=== PATIENT | female | born 1960 | race African-American/Black ===

== ENCOUNTER 2022-09-22 15:02 | Inpatient (IN) | payer OTHER, MEDICAID ==
[~2022-09-22] VITALS: Ht 160 cm; Wt 70.3 kg
[2022-09-22] MEDS ORDERED: CIPROFLOXACIN (15:15)
[2022-09-22] MEDS ORDERED: LANTUS (15:15)
[2022-09-22] MEDS ORDERED: VITAMIN D 3 (15:15)
[2022-09-22 15:27] LABS: BASOPHILS % 0.8 % (0.0-2.0); HEMATOCRIT. 50.6 % (36.0-48.0); HEMOGLOBIN. 16.5 g/dL (12.0-16.0); LYMPHOCYTES % 7.5 % (20.0-50.0); MEAN CORPUSCULAR VOLUME 79.7 fL (81.0-99.0); MEAN PLATELET VOLUME 11.1 fl (7.4-10.4); MONOCYTES % 5.9 % (2.0-8.0); NEUTROPHILS % 85.8 % (40.0-76.0); PLATELET 302 x1000/uL (130-400); RED BLOOD CELL COUNT 6.34 mill/uL (4.2-5.4); RED CELL DISTRIBUTION WIDTH 13.3 % (11.6-14.6)
[2022-09-22] MEDS ORDERED: SODIUM CHLORIDE 0.9% 1,000 ML IV ONE ×3 (15:30→16:45)
[2022-09-22 15:33] LABS: CHLORIDE 87 mEq/L (98-107)
[2022-09-22] MEDS ORDERED: DEXTROSE 50% WATER 25ML (12.5GM) IV PRN (16:45)
[2022-09-22] MEDS ORDERED: DEXTROSE 50% WATER 50ML (25GM) IV PRN (16:45)
[2022-09-22] MEDS ORDERED: KCL 10MEQ/50ML PREMIX 100 ML IV SCH (16:45)
[2022-09-22] MEDS ORDERED: POTASSIUM CHLORIDE 20MEQ TABLET SR PO ONE (16:45)
[2022-09-22] MEDS ORDERED: INSULIN REGULAR (DRIP) 100 UNITS in SODIUM CHLORIDE 0.9% 99 ML IV SCH (16:45)
[2022-09-22] MEDS ORDERED: INSULIN REGULAR 100U/100ML PMX 100 ML IV SCH (16:45)
[2022-09-22 16:53] LABS: PHOSPHORUS 5.4 mg/dL (2.5-4.9)
[2022-09-22] MEDS: BLOOD SUGAR DIAGNOSTIC STRIP TEST SCH ×8 (17:10→23:48)
[2022-09-22 17:15] LABS: BETA HYDROXYBUTYRATE 1.4 mMol/L (0.0-0.3)
[2022-09-22] MEDS ORDERED: SODIUM BICARBONATE 100 MEQ in DEXTROSE 5% WATER 1,000 ML IV ONE ×2 (17:30→19:30)
[2022-09-22 17:40] LABS: CLARITY URINE CLEAR (CLEAR); COLOR URINE YELLOW (YELLOW); KETONES URINE 3+ (NEGATIVE); LEUKOCYTE ESTERASE URINE NEGATIVE (NEGATIVE); NITRITE URINE NEGATIVE (NEGATIVE); OCCULT BLOOD URINE 1+ (NEGATIVE); PROTEIN URINE TRACE (NEGATIVE); SPECIFIC GRAVITY URINE 1.019 (1.005-1.030); UROBILINOGEN URINE 0.2 E.U./dL (0.2-1.0)
[2022-09-22] MEDS ORDERED: SODIUM CHLORIDE 0.9% 1,000 ML IV SCH (18:15)
[2022-09-22] MEDS ORDERED: DOCUSATE SODIUM 100MG CAPSULE PO PRN (18:15)
[2022-09-22] MEDS ORDERED: GUAIFENESIN 200MG/10ML SUGAR FREE UDC PO PRN (18:15)
[2022-09-22] MEDS ORDERED: ACETAMINOPHEN 325MG TABLET PO PRN ×2 (18:15)
[2022-09-22] MEDS ORDERED: DEXTROSE 50% WATER 50ML SYRINGE IV PRN (18:15)
[2022-09-22] MEDS ORDERED: CLONIDINE 0.1MG TABLET PO PRN (18:15)
[2022-09-22] MEDS ORDERED: IPRATROPIUM/ALBUTEROL 0.5-3(2.5)MG/3ML NEB HHN PRN (18:15)
[2022-09-22] MEDS ORDERED: ONDANSETRON HCL 4MG/2ML INJ IV PRN (18:15)
[2022-09-22] MEDS ORDERED: MAGNESIUM/ALUMINUM HYDROXIDE/SIMETHICONE 30ML UDC PO PRN (18:15)
[2022-09-22 18:42] LABS: BG BASE EXCESS -20.5 mmol/L (-2.0-2.0); BG CARBOXYHEMOGLOBIN 0.5 % (0.5-1.5); BG DEOXYHEMOGLOBIN 5.7 % (0.0-5.0); BG FRACTION INSPIRED OXYGEN 21; BG HCO3 ACT 5.8 mmol/L (22.0-26.0); BG METHEMOGLOBIN 0.5 % (0.0-1.5); BG OXYGEN SATURATION 94.2 % (92.0-98.5); BG OXYHEMOGLOBIN 93.3 % (94.0-97.0); BG PCO2 16.5 mmHg (35.0-45.0); BG PH 7.162 (7.350-7.450); BG PO2 78.3 mmHg (75.0-100.0); BG SAMPLE SITE RIGHT BRACHIAL; BG TOTAL HEMOGLOBIN 14.7 g/dL (12.0-18.0); BG VENT MODE ROOM AIR
[2022-09-22] MEDS ORDERED: FLUCONAZOLE 100MG TABLET PO NR (19:00)
[2022-09-22] MEDS: POTASSIUM CHLORIDE INJ 20 MEQ in SODIUM CHLORIDE 0.9% 1,000 ML IV SCH (20:05)
[2022-09-22] MEDS: ENOXAPARIN 40MG/0.4ML SYR SUBCUT SCH (20:26)
[2022-09-22 20:33] LABS: CHLORIDE 105 mEq/L (98-107)
[2022-09-22 20:38] LABS: PHOSPHORUS 2.5 mg/dL (2.5-4.9)
[2022-09-22 22:44] LABS: CREATINE KINASE MB FRACTION 21.2 ng/mL (0.5-3.6)
[2022-09-23 00:33] LABS: CHLORIDE 110 mEq/L (98-107)
[2022-09-23 00:39] LABS: PHOSPHORUS 1.2 mg/dL (2.5-4.9)
[2022-09-23] MEDS: BLOOD SUGAR DIAGNOSTIC STRIP TEST SCH ×16 (01:09→20:48)
[2022-09-23] MEDS: POTASSIUM CHLORIDE INJ 20 MEQ in SODIUM CHLORIDE 0.9% 1,000 ML IV SCH (01:46)
[2022-09-23 03:13] LABS: CHLORIDE 112 mEq/L (98-107)
[2022-09-23 03:29] LABS: BETA HYDROXYBUTYRATE 5.5 mMol/L (0.0-0.3); CREATINE KINASE 92 IU/L (26-192); CREATINE KINASE MB FRACTION 19.7 ng/mL (0.5-3.6); HDL CHOLESTEROL 35 mg/dL (40-59); LDL CHOLESTEROL 251 mg/dL (5-100); T4 FREE 0.94 ng/dL (0.76-1.46)
[2022-09-23] MEDS ORDERED: POTASSIUM PHOS,M-BASIC-D-BASIC 30 MMOL in SODIUM CHLORIDE 0.9% 500 ML IV NR (04:15)
[2022-09-23] MEDS ORDERED: DEXT 5%/0.9% NACL KCL 20MEQ/L 1,000 ML IV SCH (05:45)
[2022-09-23 08:41] LABS: BASOPHILS % 1.3 % (0.0-2.0); EOSINOPHILS % 0.4 % (0.0-5.0); HEMATOCRIT. 36.7 % (36.0-48.0); HEMOGLOBIN. 12.7 g/dL (12.0-16.0); LYMPHOCYTES % 14.3 % (20.0-50.0); MEAN CORPUSCULAR HEMOGLOBIN 25.9 pg (28.0-32.0); MEAN CORPUSCULAR VOLUME 74.6 fL (81.0-99.0); MONOCYTES % 11.1 % (2.0-8.0); NEUTROPHILS % 72.9 % (40.0-76.0); PLATELET 201 x1000/uL (130-400); RED BLOOD CELL COUNT 4.92 mill/uL (4.2-5.4)
[2022-09-23 08:43] LABS: *AMPHETAMINES SCREEN URINE NEGATIVE (NEGATIVE); *BARBITURATES SCREEN URINE NEGATIVE (NEGATIVE); *BENZODIAZEPINES SCREEN URINE NEGATIVE (NEGATIVE); *COCAINE SCREEN URINE NEGATIVE (NEGATIVE); CANNABINOID URINE SCREEN NEGATIVE (NEGATIVE); METHADONE URINE SCREEN NEGATIVE (NEGATIVE); OPIATES URINE SCREEN NEGATIVE (NEGATIVE); PHENCYCLIDINE URINE SCREEN NEGATIVE (NEGATIVE)
[2022-09-23 08:48] LABS: CHLORIDE 116 mEq/L (98-107)
[2022-09-23 08:53] LABS: PHOSPHORUS 1.6 mg/dL (2.5-4.9)
[2022-09-23] MEDS ORDERED: INSULIN GLARGINE 100 UNITS/ML SUBCUT SCH (09:15)
[2022-09-23 10:33] LABS: BG BASE EXCESS -5.4 mmol/L (-2.0-2.0); BG DEOXYHEMOGLOBIN 2.4 % (0.0-5.0); BG FRACTION INSPIRED OXYGEN 21; BG HCO3 ACT 18.8 mmol/L (22.0-26.0); BG METHEMOGLOBIN 0.4 % (0.0-1.5); BG OXYGEN SATURATION 97.6 % (92.0-98.5); BG OXYHEMOGLOBIN 96.2 % (94.0-97.0); BG PCO2 33.1 mmHg (35.0-45.0); BG PH 7.372 (7.350-7.450); BG PO2 96.4 mmHg (75.0-100.0); BG SAMPLE SITE LEFT BRACHIAL; BG TOTAL HEMOGLOBIN 14.7 g/dL (12.0-18.0); BG VENT MODE ROOM AIR
[2022-09-23] MEDS ORDERED: SODIUM PHOS,M-BASIC-D-BASIC 10 MM in DEXT 5% WATER 246.6667 ML IV NR (12:00)
[2022-09-23] MEDS: INSULIN LISPRO 100 UNITS/ML SUBCUT SCH ×4 (12:10→21:22)
[2022-09-23 12:40] VITALS: PULSE 87; RESP 18; TEMP 97.9
[2022-09-23 13:00] VITALS: BP 134/65; PULSE 87; RESP 18; TEMP 97.9
[2022-09-23] MEDS: SODIUM CHLORIDE 0.9% 1,000 ML IV SCH (15:17)
[2022-09-23 15:55] VITALS: BP_SYST 126; BP_SYST 134; BP_DIAS 57; BP_DIAS 58; PULSE 105; PULSE 89; RESP 18; TEMP 98; TEMP 98.2
[2022-09-23 16:39] LABS: CHLORIDE 107 mEq/L (98-107)
[2022-09-23 16:44] LABS: PHOSPHORUS 1.2 mg/dL (2.5-4.9)
[2022-09-23 17:21] LABS: HEPATITIS B SURFACE ANTIGEN NEGATIVE
[2022-09-23] MEDS: ENOXAPARIN 40MG/0.4ML SYR SUBCUT SCH (20:41)
[2022-09-23 20:52] VITALS: BP 103/58; PULSE 79; RESP 16; TEMP 97.8
[2022-09-24 00:57] VITALS: BP 100/49; PULSE 69; RESP 18; TEMP 97.2
[2022-09-24] MEDS: SODIUM CHLORIDE 0.9% 1,000 ML IV SCH ×3 (01:20→17:47)
[2022-09-24 04:00] VITALS: BP 121/63; PULSE 89; RESP 19; TEMP 97.2
[2022-09-24] MEDS: BLOOD SUGAR DIAGNOSTIC STRIP TEST SCH ×4 (07:01→20:06)
[2022-09-24] MEDS: INSULIN LISPRO 100 UNITS/ML SUBCUT SCH ×5 (07:50→20:07)
[2022-09-24 08:06] VITALS: BP 137/62; PULSE 78; RESP 18; TEMP 97.7
[2022-09-24] MEDS ORDERED: INSULIN GLARGINE 100 UNITS/ML SUBCUT SCH (10:00)
[2022-09-24 11:37] VITALS: BP 106/84; PULSE 78; RESP 18; TEMP 97.9
[2022-09-24 12:02] LABS: BASOPHILS % 0.1 % (0.0-2.0); EOSINOPHILS % 0.3 % (0.0-5.0); HEMATOCRIT. 36.7 % (36.0-48.0); HEMOGLOBIN. 12.5 g/dL (12.0-16.0); LYMPHOCYTES % 14.4 % (20.0-50.0); MEAN CORPUSCULAR HEMOGLOBIN 25.7 pg (28.0-32.0); MEAN CORPUSCULAR VOLUME 75.5 fL (81.0-99.0); MEAN PLATELET VOLUME 10.6 fl (7.4-10.4); MONOCYTES % 13.6 % (2.0-8.0); NEUTROPHILS % 71.6 % (40.0-76.0); PLATELET 158 x1000/uL (130-400); RED BLOOD CELL COUNT 4.86 mill/uL (4.2-5.4); RED CELL DISTRIBUTION WIDTH 13.1 % (11.6-14.6)
[2022-09-24 12:15] LABS: CHLORIDE 104 mEq/L (98-107)
[2022-09-24 15:35] VITALS: BP 97/58; PULSE 82; RESP 20; TEMP 98.2
[2022-09-24 20:00] VITALS: BP 120/94; PULSE 98; RESP 18; RESP 20; TEMP 97.4
[2022-09-24] MEDS: ENOXAPARIN 40MG/0.4ML SYR SUBCUT SCH (20:08)
[2022-09-25 00:13] VITALS: BP 117/61; PULSE 71; RESP 20; TEMP 97.2
[2022-09-25 04:00] VITALS: BP 137/74; PULSE 68; RESP 18; RESP 19; TEMP 97.6
[2022-09-25] MEDS: SODIUM CHLORIDE 0.9% 1,000 ML IV SCH ×2 (05:19→10:52)
[2022-09-25 06:11] LABS: BASOPHILS % 0.2 % (0.0-2.0); EOSINOPHILS % 0.9 % (0.0-5.0); HEMOGLOBIN. 12.4 g/dL (12.0-16.0); MEAN CORPUSCULAR VOLUME 75.2 fL (81.0-99.0); MONOCYTES % 13.1 % (2.0-8.0); NEUTROPHILS % 55.8 % (40.0-76.0); RED BLOOD CELL COUNT 4.79 mill/uL (4.2-5.4)
[2022-09-25 06:32] LABS: CHLORIDE 105 mEq/L (98-107)
[2022-09-25] MEDS: BLOOD SUGAR DIAGNOSTIC STRIP TEST SCH ×4 (07:40→21:00)
[2022-09-25 08:00] VITALS: BP 125/65; PULSE 89; RESP 18; TEMP 97.8
[2022-09-25 08:38] LABS: MEAN PLATELET VOLUME 10.4 fl (7.4-10.4); PLATELET 155 x1000/uL (130-400)
[2022-09-25] MEDS: INSULIN LISPRO 100 UNITS/ML SUBCUT SCH ×7 (08:47→21:30)
[2022-09-25] MEDS: INSULIN GLARGINE 100 UNITS/ML SUBCUT SCH (10:49)
[2022-09-25] MEDS ORDERED: POTASSIUM CHLORIDE 20MEQ TABLET SR PO NR (11:00)
[2022-09-25 12:00] VITALS: BP 136/77; PULSE 78; RESP 18; TEMP 97
[2022-09-25 12:29] LABS: PHOSPHORUS 1.8 mg/dL (2.5-4.9)
[2022-09-25 16:00] VITALS: BP 115/81; PULSE 81; RESP 18; TEMP 97.8
[2022-09-25] MEDS: SODIUM CHLORIDE 0.45% 1,000 ML IV SCH (17:32)
[2022-09-25 20:00] VITALS: BP 125/75; PULSE 73; RESP 18; TEMP 98.4
[2022-09-25] MEDS: ENOXAPARIN 40MG/0.4ML SYR SUBCUT SCH (21:29)
[2022-09-26] VITALS: BP 131/69; PULSE 77; RESP 16; TEMP 98.1
[2022-09-26] MEDS: SODIUM CHLORIDE 0.45% 1,000 ML IV SCH (02:56)
[2022-09-26 04:00] VITALS: BP 117/61; PULSE 66; RESP 18; TEMP 97.5
[2022-09-26 06:25] LABS: HEMOGLOBIN 12.2 g/dL (12.0-16.0); MEAN CORPUSCULAR HEMOGLOBIN 25.7 pg (28.0-32.0); PLATELET 147 x1000/uL (130-400); RED BLOOD CELL COUNT 4.74 mill/uL (4.2-5.4)
[2022-09-26 06:39] LABS: CHLORIDE 103 mEq/L (98-107)
[2022-09-26] MEDS: BLOOD SUGAR DIAGNOSTIC STRIP TEST SCH ×2 (07:40→13:03)
[2022-09-26 08:00] VITALS: BP 135/75; PULSE 91; RESP 18; TEMP 97.9
[2022-09-26] MEDS: INSULIN LISPRO 100 UNITS/ML SUBCUT SCH ×4 (09:08→13:03)
[2022-09-26] MEDS ORDERED: POTASSIUM PHOS,M-BASIC-D-BASIC 15 MMOL in DEXT 5% WATER 245 ML IV SCH (10:00)
[2022-09-26] MEDS: INSULIN GLARGINE 100 UNITS/ML SUBCUT SCH (10:01)
[2022-09-26 12:00] VITALS: BP 130/76; PULSE 89; RESP 18; TEMP 97.3
[2022-09-26] MEDS ORDERED: LANTUSUD SUBCUT ×2 (12:15→14:12)
[2022-09-26 14:11] VITALS: BP 130/76; PULSE 89; TEMP 97.3; O2SAT 97
== END 2022-09-26 15:45 | disposition home health service (06) | DRG 638 ==
LOC: ER 15:02 → MICUSO 18:43 → EDBEDREQ 18:45 → 7WST 09-23 12:44
PROVIDERS: ADMIT Internal Medicine; ATTEND Internal Medicine
DX: E11.10 Type 2 diabetes mellitus with ketoacidosis without coma (principal); E87.1 Hypo-osmolality and hyponatremia; N17.9 Acute kidney failure, unspecified; N39.0 Urinary tract infection, site not specified; E11.65 Type 2 diabetes mellitus with hyperglycemia; E83.39 Other disorders of phosphorus metabolism; E86.9 Volume depletion, unspecified; E86.0 Dehydration; Z79.4 Long term (current) use of insulin; Z87.440 Personal history of urinary (tract) infections
CPT/HCPCS: 36415; 36600; 71045; 80048; 80053; 80061; 80305; 81003; 82010; 82375; 82550; 82553; 82805; 82962; 83036; 83605; 83735; 84100; 84145; 84439; 84443; 84484; 85025; 85027; 86803; 87340; 93970; 97161; 97165; 99291; J1650; J1815; J3480; J3490; J7030; J7040; J7050; J7060; J7070